=== PATIENT | male | born 1990 | race Caucasian/White ===

== ENCOUNTER 2018-05-23 23:14 | Inpatient (IN) | payer OTHER ==
--- NOTE | 2018-05-23 23:25 | EDPHY ---
H & P Source: Patient, Police Time Seen by Provider: 05/23/18 23:25 HPI/ROS: HPI CHIEF COMPLAINT: M1 hold by police, court order. HISTORY OF PRESENT ILLNESS: 27-year-old male, presents emergency room stating he does not take any medications and denies any significant medical history denies any psychiatric history. On further history taking and review of systems the patient is refusing to answer my questions. He states he is brought here by police on M1 hold as his mom called 911 out of concern. The police showed up to his house and brought him here. He states he has no idea why he is on M1 hold or brought here. Of note additionally this patient presents emergency room with a court order for evaluation. Past Medical History: Anxiety and bipolar disorder. Past Surgical History: Denies surgical history Social History: Denies drugs alcohol tobacco. Family History: Noncontributory ROS REVIEW OF SYSTEMS: Review of systems and history limited due to patient's interaction and unwillingness to cooperate and answer my questions. Exam Constitutional triage nursing summary reviewed, vital signs reviewed, awake/ alert. Eyes normal conjunctivae and sclera, EOMI, PERRLA. HENT normal inspection, atraumatic, moist mucus membranes, no epistaxis, neck supple/ no meningismus, no raccoon eyes. Respiratory clear to auscultation bilaterally, normal breath sounds, no respiratory distress, no wheezing. Cardiovascular rate normal, regular rhythm, no murmur, no edema, distal pulses normal. Gastrointestinal soft, non-tender, no rebound, no guarding, normal bowel sounds, no distension, no pulsatile mass. Genitourinary no CVA tenderness. Musculoskeletal no midline vertebral tenderness, full range of motion, no calf swelling, no tenderness of extremities, no meningismus, good pulses, neurovascularly intact. Skin pink, warm, & dry, no rash, skin atraumatic. Neurologic awake, alert and oriented x 3, AAOx3, moves all 4 extremities equally, motor intact, sensory intact, CN II-XII intact, normal cerebellar, normal vision, normal speech. Psychiatric normal mood/affect. Heme/Lymph/Immune no lymphadenopathy. Differential Diagnosis: Includes but is not limited to in a particular order underlying mood disorder, personality disorder, bipolar disorder, depression, suicidal ideation, drug intoxication, substance abuse Medical Decision Making: Plan for this patient blood draw for medical clearance , he is on M1 hold by police, he will need mental health evaluation. Re-evaluation: 0436: Patient sleepy no acute distress. He does have a history of bipolar disorder and anxiety. He is on a court order evaluation. Patient need mental health evaluation the morning. 0630AM: Patient sleeping. Signed over to Dr. Segura 7am shift-change. (Rufus Nance) Constitutional: Initial Vital Signs Temperature (C) 36.4 C 05/23/18 23:28 Heart Rate 56 L 05/23/18 23:28 Respiratory Rate 16 05/23/18 23:28 Blood Pressure 156/93 H 05/23/18 23:28 O2 Sat (%) 99 05/23/18 23:28 O2 Delivery Mode Room Air Allergies/Adverse Reactions: No Known Allergies Allergy (Unverified 05/23/18 23:22) Home Medications: Medication Instructions Recorded NK [No Known Home Meds] 05/23/18 Medical Decision Making Other Provider: Care assumed at 7:00 a.m. With plan for mental health admission. The patient will be transferred to [facility] for inpatient psychiatric hospital bed not available at this facility, in stable condition; accepting physician is Dr. Rod Alvarado, discussed with him at 8:30 a.m. EMTALA form completed. (Reynaldo Segura) - Data Points Laboratory Results: Laboratory Results 05/23/18 23:26 05/23/18 23:26 05/24/18 05/23/18 05/23/18 00:05 23:26 23:26 WBC 8.77 10^3/uL 10^3/uL (3.80-9.50) RBC 5.13 10^6/uL 10^6/uL (4.40-6.38) Hgb 15.6 g/dL g/dL (13.7-17.5) Hct 45.2 % % (40.0-51.0) MCV 88.1 fL fL (81.5-99.8) MCH 30.4 pg pg (27.9-34.1) MCHC 34.5 g/dL g/dL (32.4-36.7) RDW 12.2 % % (11.5-15.2) Plt Count 219 10^3/uL 10^3/uL (150-400) MPV 10.6 fL fL (8.7-11.7) Neut % (Auto) 48.7 % % (39.3-74.2) Lymph % (Auto) 37.4 % % (15.0-45.0) [place] % (Auto) 8.1 % % (4.5-13.0) Eos % (Auto) 4.7 % % (0.6-7.6) Baso % (Auto) 0.9 % % (0.3-1.7) Nucleat RBC Rel Count 0.0 % % (0.0-0.2) Absolute Neuts (auto) 4.27 10^3/uL 10^3/uL (1.70-6.50) Absolute Lymphs (auto) 3.28 10^3/uL H 10^3/uL (1.00-3.00) Absolute Monos (auto) 0.71 10^3/uL 10^3/uL (0.30-0.80) Absolute Eos (auto) 0.41 10^3/uL H 10^3/uL (0.03-0.40) Absolute Basos (auto) 0.08 10^3/uL 10^3/uL (0.02-0.10) Absolute Nucleated RBC 0.00 10^3/uL 10^3/uL (0-0.01) Immature Gran % 0.2 % % (0.0-1.1) Immature Gran # 0.02 10^3/uL 10^3/uL (0.00-0.10) Sodium 140 mEq/L mEq/L (135-145) Potassium 3.8 mEq/L mEq/L (3.3-5.0) Chloride 98 mEq/L mEq/L (97-110) Carbon Dioxide 30 mEq/l mEq/l (22-31) Anion Gap 12 mEq/L mEq/L (8-16) BUN 23 mg/dL mg/dL (7-23) Creatinine 1.2 mg/dL mg/dL (0.7-1.3) Estimated GFR > 60 Glucose 99 mg/dL mg/dL (70-100) Calcium 9.6 mg/dL mg/dL (8.5-10.4) Urine Opiates Screen NEGATIVE (NEGATIVE) Urine Barbiturates NEGATIVE (NEGATIVE) Ur Phencyclidine Scrn NEGATIVE (NEGATIVE) Ur Amphetamine Screen NEGATIVE (NEGATIVE) U Benzodiazepines Scrn NEGATIVE (NEGATIVE) Urine Cocaine Screen NEGATIVE (NEGATIVE) U Marijuana (THC) Screen NEGATIVE (NEGATIVE) Ethyl Alcohol < 10 mg/dL mg/dL (0-10) Departure - Departure Disposition: [facility] IP Clinical Impression: Bipolar disorder Qualifiers: Active/Remission status: currently active Current bipolar episode type: mixed Current episode severity: severe Psychotic features: with psychotic features Qualified Code(s): F31.64 - Bipolar disorder, current episode mixed, severe, with psychotic features Condition: Good Instructions: Bipolar Disorder (ED) Referrals: Maru Alvarez MD [Medical Doctor] - As per Instructions NONE *PRIMARY CARE P,. [Primary Care Provider] - As per Instructions (Dr. Nj )
[2018-05-23 23:33] LABS: PLATELET COUNT 219 10^3/uL (150-400)
[2018-05-24] MEDS ORDERED: MAGNESIUM HYDROXIDE 30 ML UDCUP PO PRN (10:37)
[2018-05-24] MEDS ORDERED: MAG HYDROX/AL HYDROX/SIMETH 30 ML UDCUP PO PRN (10:37)
[2018-05-24] MEDS ORDERED: ACETAMINOPHEN 325 MG TAB PO PRN (10:37)
--- NOTE | 2018-05-24 10:43 | ASMTTLCEVL ---
TLC Evaluation - Basic Information Evaluation Start Date and 05/24/2018 07:05 AM Time Hospital Status Answers: M1 Hold 72-hr M1 Hold Start Date 05/23/2018 11:14 PM and Time Patient statement Notes: I don't agree with what my mother reported on the court-ordered hold. I think it's just a game to force people to be hospitalize. I'm not relating to my mother. We don't see eye-to-eye. Regarding the hold report that I had barricaded myself in my house, it was just that I was trying to keep my mother from coming in. I have been feeling depressed for about a year. I'm unhappy and have severe discomfort in my body." Narrative Notes: Pt is a 27 yo, single, unemployed, male, with reported past history of anxiety, bipolar illness, possible autism spectrum/asperger's, brought to [facility]ordered hold petitioned by [facility] due to concerns about suicidal statements. Per petitioner's statement: pt has a history of mental health diagnosis for anxiety disorder and bipolar. He has had issue in the past but recently [[facility]'s} concern for his safety and wellbeing has intensified. Family also has a history of mental illness, autism and suicide and [facility] fears that pt has become suicidal. 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 He lives in [place] in a house for which [facility] pays the utilities and rent. Pt has completely isolated himself and recently had express despair about being alive. Pt sent a text to [facility] "You don't know the hell that I am in, you don't know how bad the state of my mind and body has gotten and how it reacts with people. It may be redeemable, in which case the best thing to do is to end my life. If you knew the torment I experience, unremittinlgy, and then you would know it doesn't just calm down when you're here, it often gets worse. If the knot is just too tight to untangle, then the best thing to do is cut the string. I have no relief. I don't experience any amount of ok. My body and mind are hell." [facility] added that pt had sent her a Youtube video where the speaker was talking about suicide and how people who commit suicide are not bad, but rather teachers. Pt has no social connections in [place]. His family and MOC live out of state but try to keep in contact with him. MOC will text him with no response. His twin brother will also try and reach out to him without any response. This past week, BOC and MOC flew out to [place] to check on pt. When they arrived to pt's home, it was barricaded. Once his brother got past the barricades and into the house, pt went out a window onto his roof and hid from family. They tried to talk to pt but received no answers. Pt would not come back into the house until they left. Pt also hides in crawl spaces or in the basement when his anxiety becomes too much for him. Although pt has sought out help in the past, he will never follow through. He refuses to take any medication or seek any professional help at this time. Pt has told MOC that if she tried to put him the health care system that he will run or . His anxiety level goes up to the point that he begins to hit himself in the heart or the back of his head. It looks as if he can no longer control the action of his body - he will jerk, groan, and yell. [facility] reported she fears for pt's life and that he had asked her recently "what if I do not want to live?" Pt is in a state of complete despair. he has attempted suicide in the past and [facility] is concerned that if he does not get help he needs, he will attempt it again. As earlier noted, pt minimized his symptoms but did endorse feeling depressed for the past year. Pt reported having been hospitalized three previous times for 72 hours then released. He was treated at [facility] at age 18 and most recently in June 2017. Pt reported having attended a [facility] drug rehab in [facility] where he spent two months for opiate dependency. Pt reported that he had worked with a therapist named Zaheer Bailey over the past 10 years, however, has not been working with him in two years. [facility] reported that pt had attempted to become involved with the [facility], but would fail to attend/participate. Pt reported he is not on any home medications, has no known medication allergies. Sleep - pt reported typically getting 6-7 hours per night. Appetite was reported as normal. Diagnosis History Notes: Pt has reported history of anxiety, bipolar illness, and austims spectrum/possibe asperger's. Prior suicide attempts Notes: MOC reported on petitioner's statement that pt had attempted suicide in the past. Prior hospitalizations Notes: Pt reported having been hospitalized three previous times for 72 hours then released. He was treated at [facility] at age 18 and most recently in June 2017. Pt reported having attended a [facility] drug rehab in [place] called [facility] where he spent two months for opiate dependency. Treatment Responses Notes: MOC reported pt having a history of not following up with professional care or taking prescribed medications. History of violence Notes: None reported. Therapist: None currently Psychiatrist: None Medications (name, dosage, route, freq uency) Notes: No home medications. Allergies/Reaction Notes: None reported. Sleep Notes: Pt reported typically getting 6-7 hours of sleep per night. Appetite Notes: WNL Medical/Surgical history Notes: None reported. Substance use history (frequency, intensity, his tory, duration) Notes: Pt reported having first tried alcohol at age 17. He reported he consumed more heavily around age 18. He reported that over the last year, he would drink about a dozen time total. He reported his last alcohol use, however, was last night, drank two shots of gin in a gin & [place] apple juice. He reported having first tried non-prescribed oxycontin at age 15. He reported going to two month [facility] rehab in [place] called [facility] at age 17. He reported his last use of any opiates was after attending the [facility] program at age 17. Pt reported he first tried marijuana at age 13. He reported he has not used any marijuana in the past 3-4 years. Pt denied any other illicit substance use history. BAL was zero. UDS was negative for all tested susbstances. Family composition Notes: Parent after 15 year marriage in 2003. Pt has a fraternal twin brother who lives in [place], [place]. He has a 27 yo sister who resides in [place]. Need for family Answers: Yes participation in patient's care Family psychiatric/substance abuse history Notes: MOC reported extensive family history, with MGFOC having history of bipolar and alcoholism; MGMOC with history of Autism; MAunt that committed suicide by overdose of pills and alcohol; MUncle with history of Asperger's; FOC with undiagnosed but suspected Asperger's. Developmental history Notes: Pt grew up in [place], [place]. He attended private schools. He denied any childhood history of TBI's, LOC, or concussions. Pt denied any childhood history of physcial, emotional or sexual abuse/trauma. Abuse concerns Answers: None Marital status/children Notes: Pt is single, never , no dependents. Not involved in dating relationship. Living situation Notes: Pt resides in a house in [place] by himself. [facility] pays utilities and rent for pt. Sexual history/orientation Notes: Not active. Heterosexual. Peer support/family strengths Notes: None identified by pt. MOC and siblings appear concerned and want to be supportive, however, pt alienates himself from family/others. Education level/history Notes: Pt attended private schools growing up. He later obtained his GED. Work history Notes: [facility] reported pt having worked briefly in the past doing [employer] type work in which he could be by himself. 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 He has not been employed for a few years now. Notes: None. Legal Notes: Pt reported obtaining a DUI in 2008 and had to attend alcohol ed classes, community service. Sikh/Spiritual Notes: None reported by pt which would impact treatment. Leisure Notes: Pt reported he enjoyes being outdoors and hiking. Collateral Notes: Per [facility], Rhiannon Gleason [phone] as noted above. TLC Evaluation - Mental Status Exam Appearance: Answers: Appropriate Unkempt Eye Contact: Answers: Intermittent Staring Mood: Answers: Depressed Labile Sad Affect: Answers: Anxious Calm Constricted Guarded Inappropriate Incongruent w/ Mood Labile Sad Silly Suspicious Behavior: Answers: Cooperative Guarded Passive Resistive to Care Speech: Answers: Relevant Logical Clear Coherent Loose Associations Thought Process: Answers: Disorganized Oriented Alert Circumstantial Loose Associations Tangential Insight: Answers: Poor Judgement: Answers: Poor Manic Signs/Symptoms Answers: Impulsivity Mood Swings Depression Answers: Difficulty Concentrating Signs/Symptoms: Diminished Pleasure Flat Affect Psychomotor Retardation Sad Mood Withdrawn Anxiety Signs/Symptoms Answers: Generalized Anxiety Hallucinations: Answers: None Delusions: Answers: Paranoid Ideation Current Stage of Change Answers: Maintenance Pt reported to have Answers: Yes suicidal/self-injuring ideation/behavior? Pt reported to be making Answers: No suicidal/self-injuring threats? Pt reported to have Answers: No aggression/assault ideation/behavior? Pt reported to be making Answers: No aggression/assault threats? Pt exhibits inability to Answers: Yes care for self/grave disability? Ideation/behavior is Answers: Yes chronic? Patient has a specific Answers: No plan? Ideation involves Answers: No serious/lethal intent? Ideation has Answers: No delusional/hallucinatory content? History of Answers: Yes suicidal/self-injuring ideation, behavior, or threats? History of Answers: No aggressive/assaultive ideation, behavior, or threats? History of serious Answers: No physical harm to self/others while in treatment setting? TLC Evaluation - Suicide/Homicide Risk Suicide Risk Factors: Answers: Anhedonia Anxiety/Panic, Severe Bipolar Disorder Flat Affect Hx of Suicide Attempt by Family Member Impulsivity Inadequate Social Support Lack of Sikh Support Lack of Social Support Lack/Loss of Employment Prior Suicide Attempt(s) Single Homicide/violence risk Answers: None factors: Current Suicidal Answers: No Ideation? Current Suicidal Ideation Answers: Yes in the Past 48 Hours? Current Suicidal Ideation Answers: Yes in the Past Month? Current Suicidal Answers: No Ideation, Worst Ever? Suicide Internal Answers: Absence of Psychosis Protective Factors: Suicide External Answers: None Protective Factors: Ranking of patient's Answers: Severe suicidal risk: Ranking of patient's Answers: Low homicidal risk: TLC Evaluation - Wrap-up BDI Total Score: 9 BDI Question #2 Score: 0 BDI Question #9 Score: 0 BSS Total Score: 0 AXIS I Diagnosis (include DSM-V and ICD-10 codes), must also be entered in [employer], which is the source of truth. Notes: PROVISIONAL DIAGNOSTIC IMPRESSION: BIPOLAR I DISORDER, CURRENT OR MOST RECENT EPISODE DEPRESSED, SEVERE 296.53 (F31.4) GENERALIZED ANXIETY DISORDER 300.02 (F41.1) R/O AUTISM SPECTRUM DISORDER/ASPERGER'S 299.00(F84.0) IN CONSULTATION WITH [facility] ED PHYSICIAN, DIANA HARP MD AND ON-CALL PSYCHIATRIST, KERRY THORNE MD, BOTH CONCURRED THAT PT APPEARS TO MEET 27-65 CRITERIA REQUIRING PSYCHIATRIC HOSPITALIZATION PT APPEARS TO BE AN IMMINENT RISK OF HARM TO SELF DUE TO A MENTAL ILLNESS CONDITION. PT WAS GIVEN (BUT DECLINED TO SIGN) THE 3N PROHIBITED BELONGINGS LIST WHILE IN THE ED. Evaluation End Date and 05/24/2018 10:40 AM Time (HH:SOHAIL): Date Signed: 05/24/2018 10:42 AM Electronically Signed By:Cameron Masterson
--- NOTE | 2018-05-24 10:45 | ASMTTCLDSP ---
TLC Discharge Disposition Disposition: Answers: Admit Disposition Notes: Notes: ADMIT TO [facility]. Discharge Concerns/Recommendations: Notes: IN CONSULTATION WITH [facility] ED PHYSICIAN, DIANA HARP MD AND ON-CALL PSYCHIATRIST, KERRY THORNE MD, BOTH CONCURRED THAT PT APPEARS TO MEET 27-65 CRITERIA REQUIRING PSYCHIATRIC HOSPITALIZATION PT APPEARS TO BE AN IMMINENT RISK OF HARM TO SELF DUE TO A MENTAL ILLNESS CONDITION. PT WAS GIVEN (BUT DECLINED TO SIGN) THE 3N PROHIBITED BELONGINGS LIST WHILE IN THE ED. Was patient given the Answers: Yes Inpatient Behavioral Health Prohibited Belongings List while in the ED? For inpatient Kerry Thorne MD admission, the following psychiatrist agreed to accept patient for admission to Behavioral Health ([facility]): Psychiatrist vacating M1 N/A Hold: Type of Hold: Answers: M1/72-hour Hold Hold initiated by: Answers: Court Order For Transfers, Accepting [facility] Facility: Date Signed: 05/24/2018 10:45 AM Electronically Signed By:Cameron Masterson
--- NOTE | 2018-05-24 13:25 | BCON ---
[f rep st] BEHAVIORAL HEALTH CONSULTATION INTERNAL MEDICINE CONSULTATION DATE OF CONSULTATION: 05/24/2018 REFERRING PHYSICIAN: Rod Alvarado MD REASON FOR REFERRAL: Medical clearance for inpatient behavioral health stay. HISTORY OF PRESENT ILLNESS: This patient came to the emergency department brought by police on an M1 hold for a court-ordered psychiatric evaluation. He reports that it was his mother who arranged the court order. He is currently without any medical complaints. PAST MEDICAL HISTORY: He denies any history of medical illnesses. He has diagnoses in the chart of bipolar disorder and anxiety. PAST SURGICAL HISTORY: He has not had any surgeries. MEDICATIONS: He was not taking any medications. SOCIAL HISTORY: He lives by himself in an apartment. He has worked part-time jobs in the past including restaurant work and [employer], but is not working currently. He denies tobacco smoking, alcohol use, or use of other substances of abuse. FAMILY HISTORY: He is not aware of any medical problems that run in his family. REVIEW OF SYSTEMS: Other than feeling sad, a 10-point review of systems was conducted and was negative. PHYSICAL EXAM: VITAL SIGNS: Blood pressure is 126/76. Heart rate is 50. Respiratory rate is 12. Oxygen saturation is 99% on room air. Temperature is 37 degrees centigrade. His weight is 63.5 kg for a body mass index of 20.1. GENERAL: This is a thin, but otherwise well-nourished, well-developed man lying down in bed, sits up on the edge of the bed when the examiner enters. Cooperative and in no acute distress. HEENT: Extraocular movements are intact. Pupils are equal, round, and reactive to light. Mucous membranes are moist. Dentition is in good condition. He has an uncrowded airway, Mallampati class 1. NECK: Supple. HEART: There is a regular rate and rhythm. He is bradycardic. There are no murmurs, rubs, or gallops. LUNGS: Clear to auscultation bilaterally. ABDOMEN: Benign. EXTREMITIES: There is no cyanosis , clubbing, or edema. NEUROLOGIC: He is alert and oriented x3. He has a flat affect. Cranial nerves 2-12 are grossly intact. There is no focal weakness, and sensation is intact to light touch. LABORATORY STUDIES: Drawn in the emergency department, CBC was overall within normal limits. He had a very slight increase in absolute lymphocytes and eosinophils of no clinical significance. Serum chemistry revealed normal renal function, electrolytes, and liver functions. Toxicology screen in the serum was negative for ethyl alcohol and in the urine was negative for any substances of abuse. ASSESSMENT/RECOMMENDATIONS: 1. Mental health issues pending further evaluation and management per Psychiatry and the mental health team. 2. Normal examination overall. 3. Bradycardia is likely to be a normal variant. He shows no signs or symptoms of any structural heart disease. 4. I see no medical contraindications to this patient's continued stay on the inpatient behavioral health unit or to any psychiatric medications or procedures. Thank you very much for including me in the care of this patient and please do not hesitate to contact me or the hospitalist service should there be need for further medical evaluation. /[id number]/MODL MTDD
[2018-05-24] MEDS ORDERED: traZODone 50 MG TAB PO PRN (14:39)
--- NOTE | 2018-05-24 16:26 | BAPA ---
[f rep st] ADMISSION PSYCHIATRIC ASSESSMENT DATE OF SERVICE: 05/24/2018 CHIEF COMPLAINT: "Mom concerned about me because I haven't been functioning like normal." HISTORY OF PRESENT ILLNESS,: Pertinent data from the ED note dated 05/23/2018. The patient was brought to the ER by police on an M1 hold for a court order evaluation. The patient reported that he does not take any medications and denied any significant medical history and denied any psychiatric history. The patient was brought by police for a court order evaluation as his mom called 911 out of concern for him. The patient stated he had no idea why he was brought to the ER. Pertinent data from [facility] evaluation dated 05/24/2018 at 7:05 a.m. The patient reported he did not agree with what his mother reported for the court ordered hold. The patient reported he thinks it is just a game to force people to be hospitalized and he was not relating to his mother. The patient stated he does not see eye to eye with his mother. The patient stated that regarding what was reported on the hold, he did report barricading himself in his house. He was just trying to keep his mother from coming in. The patient reported he has been feeling depressed for about a year and stated he is unhappy and having severe discomfort in his body. The patient did endorse feeling depressed for the past year. He reported having been hospitalized 3 previous times for 72 hours, then released. He was treated at [facility] at age 18 and was most recently at [facility] and released June of 2017. The patient reported that he has attended a [facility] rehab in [place] called [place], where he spent 2 months for opiate dependence. The patient reported that he had worked with a therapist named Zaheer Smith over the past 10 years; however, has not been working with him most recently over the past 2 years. The patient reports he typically gets about 6-7 hours of sleep per night and reported his appetite as normal. The patient was admitted involuntarily for court order evaluation due to being thought a danger to himself and gravely disabled and the court was petitioned by his mother. The patient was hospitalized for safety crisis stabilization and medication evaluation. The patient describes circumstances that led to current hospitalization as he has not been working for over a year, has been depressed, and has been isolating in his home and this has caused his mother to be concerned. The patient reports one year ago, he was dating a girl and was socializing with friends and then the relationship ended. He moved to [place] and has been depressed and isolating since then. The patient does agree that the break-up with girlfriend about 1 year ago may have been a contributing factor to his current depression. The patient also reports that he realizes that not socializing is also likely leading to his depressed state and reports that it snowballs. He gets depressed, does not socialize, and this just leads to more depression. The patient reports current mental illness as none. The patient reports he has seen a psychiatrist in the past as a teenager for anxiety and reports last episode of depression as a teenager. The patient states current alcohol or substance abuse that contributed to current hospitalization as none. The patient describes current psychiatric symptoms as depressed mood, diminished interest and pleasure in activities, feelings of fatigue, feelings of worthlessness and guilt, and indecisiveness nearly every day. The patient denies symptoms of agoraphobia, naun, anxiety, ADHD, OCD, PTSD, psychosis, and any other symptom of a psychiatric disorder. The patient describes abuse history as none. The patient describes current psychiatric symptoms are impacting managing day-to-day life, described as his home is a mess , but he does report attending to ADLs. The patient reports he has been unemployed for 1 year, describes isolating and currently has no social connections in the [place] area. The patient reports he does get along with his family, but when he is feeling depressed he avoids contact with his mother. The patient reports he enjoys hiking and he gets out for hikes on a daily basis. The patient describes that he is generally satisfied with his life. The patient denies current suicidal ideation, denies current homicidal ideation , and denies current self-injurious ideation. The patient reports protective factors or reasons to live as just that he enjoys life and he finds life to be very beautiful. The patient reports future goals as doing something helpful and having a relationship. The patient reports he currently does not have any emotional support network. The patient reports current outpatient treatment as none. States he currently does not see a provider for medication management nor does he see a therapist. The patient reports he is interested in re- engaging in therapy. PAST PSYCHIATRIC HISTORY: The patient describes the following psychiatric history: The patient reports he was diagnosed with anxiety as a teenager and he has been tried on multiple psychotropic medications including Zoloft, Prozac , Lamictal, Wellbutrin, Depakote and Seroquel. The patient reports that regardless of the type of medication he always feels numb when he takes medication and "in a fog." The patient reports he did see a psychiatrist as a teenager on an outpatient basis. The patient describes history of being hospitalized 3 times for 72 hours, then released. The patient reports he was treated at [facility] at age 18 and reports he was last at [place] in June of 2017 due to a court order placement by his mother, similar to the court order placement for current hospitalization. The patient denies history of major withdrawal from drugs or alcohol. The patient reports history of suicide attempt as a teenager by overdose on Ativan. The patient denies history of self-injurious behavior. ALLERGIES: No known drug allergies. CURRENT MEDICATIONS: None. PAST MEDICAL HISTORY: The patient describes the following: The patient denies any neurological history including history of organic brain disease, traumatic brain injury or concussions. The patient denies history of major illnesses or major hospitalizations. SOCIAL HISTORY: The patient describes the following social history: The patient reports he was born in [place] and his parents were at the time of his . The patient reports his parents when he was 12 years old and he was raised the majority of his life in [place] by his mother. The patient reports he currently lives in [place] alone. The patient describes meeting all his developmental milestones and reports no history of learning delays or difficulties. The patient describes his sexual orientation as heterosexual, states he is currently not in a relationship, has never been , and has no children. The patient reports he has been unemployed for 1 year. Reports his highest level of education is high school. Describes no history of duty. No baptism or spiritual practice and states he currently has no legal charges. SUBSTANCE USE HISTORY: The patient reported having first tried alcohol at age 17. He reported he consumed more heavily around age 18. Reports that over the last year he would drink about a dozen times total. The patient reports last alcohol use was 2 nights ago. He states he drank 2 shots of gin in a gin and Brant apple juice. The patient reports having first tried non-prescribed OxyContin at age 15. He reports going to a [facility] in [facility] at age 17. The patient reports he last used opiates after attending the wilderness program at age 17. The patient describes he first tried marijuana at age 13 and the reports he has not used marijuana in the past 3-4 years. The patient denies any other illicit substance use history. A blood alcohol was 0 and UDS was negative for all tested substances upon admission. FAMILY PSYCHIATRIC HISTORY: The patient describes the following family psychiatric history: The patient reports a family history of depression, does not provide any details regarding specific family relatives with a diagnosis of depression. The patient reports a family history of suicide, states that his aunt completed suicide. The patient reports family substance use history as paternal grandfather abused alcohol. ADMISSION LABS AND STUDIES: Labs drawn in the emergency department: CBC was overall within normal limits. The patient had a very slight increase in absolute lymphocytes and eosinophils of no clinical significance. Serum chemistry revealed normal renal function, electrolytes, and liver functions. Toxicology screen in the serum was negative for ethyl alcohol and in the urine was negative for any substances of abuse. MENTAL STATUS EXAM: The patient is an undernourished male looking chronological age. The patient's attire is appropriate. Dress is hospital garb and is neat and clean. Grooming status is appropriate and clean. The patient's ambulation is independent. Gait is normal and coordinated. The patient's posture is normal and relaxed. During the interview, the patient's eye contact is appropriate and adequate. Motor activity is appropriate with purposeful, organized, and coordinated movements with no involuntary movements noted. The patient's attitude is cooperative and friendly. The patient appears attentive and relates well to this interviewer. Language production is spontaneous. Rate , rhythm and volume are appropriate. Articulation is clear. The patient reports mood as depressed with blunted and congruent affect. The patient's thought process is linear and logical with no loose associations, no tangential thoughts, no thought blocking, no concrete thinking, or any other signs of formal thought disorder. The patient does not report suicidal, homicidal thoughts, ideas, or plans. The patient denies auditory or visual hallucinations. The patient denies delusions. The patient does not appear to be attending to internal stimuli. The patient is oriented to person, place, time, and situation. The patient's attention and concentration are adequate. The patient's insight and judgment are fair. There is no evidence of gross cognitive dysfunction at any point during the interview and no evidence of apparent dysfunction in recent or remote memory. The patient reports he gets about 6-7 hours of sleep per night and describes his appetite as normal and eating 3 meals a day. DIAGNOSIS: Major depressive disorder, severe. FORMULATION: The patient is a 27-year-old male, single, unemployed, living in [place] alone, who presents to the hospital involuntarily on a court ordered evaluation due to being a harm to himself. The patient requires continued inpatient care for further monitoring due to recent concern that led to his being placed on a court ordered evaluation. The patient presents with problems of depression that have been steadily increasing over the past year. The patient's life has been affected by these problems, including being unemployed for a year, not engaging in any social activities, and leading to a major concern by his mother, who petitioned the court for a court ordered psychiatric evaluation. The onset of current symptoms was preceded by a break-up with girlfriend. The patient reports a past psychiatric history of anxiety and states that he currently has been treated with psychotropic medications in the past. The patient reports he currently is not interested in psychotropic medications for depression. However, the patient does agree to a trial of trazodone 50 mg p.o. at bedtime p.r.n. for insomnia. Based on the patient's history and current presentation, his diagnosis is major depressive disorder, severe. The patient is a moderate safety risk due to current crisis and history of depression. Protective factors while hospitalized include ongoing safety checks, active involvement in treatment, and support from our treatment team. The patient could benefit from inpatient hospitalization for safety crisis stabilization and medication evaluation. PLAN: 1. Psychotropic medications: After reviewing treatment options, the risks and benefits, the patient agrees to trial of trazodone 50 mg p.o. at bedtime p.r.n. for insomnia and depression. 2. Labs: A1c, fasting lipid panel, liver function tests. 3. Therapy: Milieu and group therapy while the patient is hospitalized. The patient also expressed motivation during the interview to be re-engaged in therapy and this interviewer spoke to telehealth case manager regarding providing the patient with outpatient referrals and appointments for the patient to be re- established with therapy. This interviewer also discussed with the patient and the telehealth case manager regarding some referrals for the patient to be engaged socially in the community. 4. Further investigation including gathering information from patients relatives and review of past case records 5. Continued evaluation and monitoring will be ongoing during the course of patients inpatient hospitalization to inform treatment, to determine if adjustments in medication regimen may benefit patients symptoms, and for discharge planning 6. Safety plan and follow-up outpatient appointments to be established prior to discharge 7. Confer with inpatient treatment team regarding initial treatment plan 8. Review informed consent and recommendations for psychotropic medication treatment listed below now, during the course of hospitalization, and during discharge interview Estimated length of stay: 2 - 3 days. PSYCHOTROPIC MEDICATION TREATMENT INFORMED CONSENT and RECOMMENDATIONS: Review nature of condition, diagnosis, and prognosis. Review nature and purpose of psychotropic medication treatment. Review type of psychotropic medications being ordered. Review risk and benefits of psychotropic medication treatment. Review probable length of time will need to take medications. Review risk and benefits of not undergoing psychotropic medication treatment. Review alternative treatments to psychotropic medications. Review psychotropic medications contraindications, drug-drug interactions, side effects, and importance of reporting any side effects to a psychiatric provider or nurse during inpatient hospitalization, and upon discharge to patients psychiatric outpatient provider, primary care provider, or other health ocular care aide. Review importance of asking a nurse, psychiatric provider, or primary care provider any questions or problems concerning the psychotropic medications. Verifty patient understands the information that has been provided, and understands, accepts, and agrees to psychotropic medications. Review patients safety plan and importance of patient to communicate to staff while hospitalized if patient is ever a danger to self/others, or unable to care for self, and upon discharge, the importance for patient to contact [facility] or [facility], or go to the nearest emergency room, if patient is ever a danger to self/others, or unable to care for self. Recommend that upon discharge patient establish medication management treatment with a psychiatric provider, establishes routine therapy appointments, and follow-up with primary care provider. Verify patient understands and agrees to these recommendations. /[id number]/MODL MTDD
--- NOTE | 2018-05-25 08:49 | PDMN ---
Medical Necessity Medical necessity: [id number] Major Depressive disorders IN care 3 days - Involuntary admit, court ordered due to being harm to self.
--- NOTE | 2018-05-25 11:02 | ASMTBHMTP ---
Master Treatment Plan Master Treatment Plan Answers: Depressed Mood without for: Suicidal Ideation Date: 05/25/2018 Diagnosis on Admission: BiPolar I Disorder, Current or Most Recent Episode Depressed, Severe & Generalized Anxiety Disorder Expected length of stay: 3-5 days Reason for admission: Notes: Pt is a 27 yoa male with reported history of anxiety, bipolar illness, possible autism spectrum/asperger's, brought to ED by [facility] on a court-order Hold Petition by [facility] due to concerns about suicidal statements Client has had at least three prior hospitalizations. Pt reported having attended a [facility] in [facility] where he spent two months for Opiate Dependency. Pt reported that he was worked with a therapist named Zaheer Bailey over the past 10 years; however, has not been working with him in two years. Patient's stated presenting problems: Notes: "Because, I have a court order to be here, due to my Mother's concern for my mental health." Patient's goals for treatment: Notes: "[I] am looking to be 'here' present and live my life and hopefully discharging soon." Patient's strengths: Notes: "I am a kind person." Identify supports outside of hospital: Notes: Therapist: Zaheer Bailey Discharge criteria: Notes: Suicidal Ideation will resolve and patient will have a plan to safely manage recurrent suicidal ideations." Initial disposition plan/considerations: Notes: "go home and then go camping." Master Treatment Plan Required Signatures Psychiatrist signature: Answers: YARON Reagan: RN on-shift signature: Answers: RN: Patient signature: Answers: Patient: Date Signed: 05/25/2018 11:01 AM Electronically Signed By:Fito Martinez
--- NOTE | 2018-05-25 12:03 | ASMTBHDC ---
Notes Note: Notes: Per provider, client will be discharging when hold is up on 05/26 at 14:55. CC sent referral packet to [facility]; waiting to hear back. Also, included additional resources listed below. CC completed MTP and ALBINO with client. Client is semi-clean, direct, good eye contact, depressed with current situation, eager to find out-patient providers, affect is sadden; however, appropriate to situation. Date Signed: 05/25/2018 12:02 PM Electronically Signed By:Fito Martinez
--- NOTE | 2018-05-25 15:44 | SOAPPROG ---
SOAP Progress Note Assessment/Plan: Assessment: Major depressive disorder, severe. Improvement noted. (see subjective/ objective note). Patient is not safe to discharge at this time as more time is needed to monitor and evaluate for safety and for establishing a safe discharge plan. Patient could benefit from continued inpatient hospitalization for crisis stabilization, safety, and medication evaluation. Plan: Review psychotropic medication treatment informed consent and recommendations. After reviewing options, risk and benefits, patient agrees to continue medications. No medication changes at this time as more time is needed to determine ongoing tolerability and efficacy. Plan is to continue to observe patient for response and side effects from medications, and ongoing monitoring and evaluation. Next steps are for patient to meet with client care consultant to plan a safe discharge plan and establish outpatient services for ongoing treatment. Consider discharge on if patient is in stable condition, safe, and has a safe discharge plan. PSYCHOTROPIC MEDICATION TREATMENT INFORMED CONSENT and RECOMMENDATIONS: Review nature of condition, diagnosis, and prognosis. Review nature and purpose of psychotropic medication treatment. Review type of psychotropic medications being ordered. Review risk and benefits of psychotropic medication treatment. Review probable length of time patient will need to take medications. Review risk and benefits of not undergoing psychotropic medication treatment. Review alternative treatments to psychotropic medications. Review psychotropic medications contraindications, drug-drug interactions, side effects, and importance of reporting any side effects to a psychiatric provider or nurse during inpatient hospitalization, and upon discharge to patients psychiatric outpatient provider, primary care provider, or other health family day care provider. Review importance of asking a nurse, psychiatric provider, or primary care provider any questions or problems concerning the psychotropic medications. Verify patient understands the information that has been provided, and understands, accepts, and agrees to psychotropic medications. Review patients safety plan and importance of patient to report to staff while hospitalized if patient is ever a danger to self/others, or unable to care for self, and upon discharge, the importance for patient to contact [facility] or 1, or go to the nearest emergency room, if patient is ever a danger to self/others, or unable to care for self. Recommend that upon discharge patient establish medication management treatment with a psychiatric provider, establishes routine therapy appointments, and follow-up with primary care provider. Verify patient understands and agrees to these recommendations. 05/25/18 15:43 Subjective: Following up with patient for evaluation of depression and safety. Patient reports, Doing okay. Patient expresses the following psychiatric symptoms: none. Patient reports plans to be more active after discharging, and realizes he needs to get out and connect with people. Patient describes motivation to get reconnected at with his therapist at [facility]. Patient states he plans to re-establish treatment with this therapist, Mr. Bailey. Patient gives this interviewer permission to contact Henrry Bailey to set-up meeting with Mr. Bailey, this interviewer, and patient to discuss outpatient services. Objective: Vital Signs Temp Pulse Resp BP Pulse Ox 37.0 C 50 L 12 126/76 H 99 05/24/18 10:53 05/24/18 10:53 05/24/18 10:53 05/24/18 10:53 05/24/18 10:53 NURSING REPORT: Consulted with nursing for update on patients progress in treatment. Nurses report patient is engaged in treatment, is attending groups, slept 8.5 hours, patient expresses the following psychiatric symptoms: none, exhibits the following psychiatric symptoms: moderate depression, is eating all meals, and attending to his ADLs with no difficulty. Patient denies SI/HI, A/V hallucinations, and denies delusions. Nurses report patient has been safe and is appropriate with staff and other patients. CHIP SEPARATOR UPDATE: CC reports currently reaching out to [facility] and [facility] to set up outpatient appointments and make referrals for patient when he discharges. HENRRY BAILEY PHONE CALL: Mr. Bailey agrees to meet with this interviewer and patient tomorrow on unit at 1415. The patient is a under-nourished male looking stated than chronological age. Attire is appropriate and dress is hospital garb, and is neat and clean. Grooming status is appropriate and neat and clean. Ambulation is independent. Gait is normal and coordinated. Posture is normal and relaxed. Eye contact is appropriate. Motor activity is appropriate with purposeful, organized, and coordinated movements with no involuntary movements noted. Attitude is cooperative and friendly. Patient appears attentive and relates well to this interviewer. Language production is spontaneous. R/R/V normal. Patient reports mood as okay with flat affect. Patients thought process is linear and logical, with no loose associations, tangential thought, thought blocking, concrete thinking, or any other signs of formal thought disorder. Patient does not report suicidal/homicidal thoughts, ideas, or plans. Patient denies auditory, visual hallucinations. Patient denies delusions. Patient does not appear to be attending to internal stimuli. Patients attention and concentration are adequate. Patient is oriented to person, place, time, and situation. Patients insight is adequate. Patients judgment is adequate. No evidence of gross cognitive dysfunction at any point during the interview. No evidence of apparent dysfunction in recent or remote memory. Patient slept 9 hours. Patient reports appetite as good, and reports eating all meals. - Time Spent With Patient Time Spent With Patient: 30 minutes, met with patient individually and contacted patient's therapist per patient's request. - Pending Discharge Pending Discharge Within 24 Hours: No Pending Discharge Within 48 Hours: No ICD10 Worksheet Patient Problems: Problems Problem Status Onset Major depressive disorder, severe Acute
[2018-05-26 06:24] VITALS: BP 119/66
--- NOTE | 2018-05-26 09:03 | SOAPPROG ---
SOAP Progress Note Assessment/Plan: Assessment: Major depressive disorder, severe. Continues to improve, notably improved insight and motivation for treatment (see subjective/objective note). Plan: Review psychotropic medication treatment informed consent and recommendations. After reviewing options, risk and benefits, patient agrees to continue medications. No medication changes at this time as more time is needed to determine ongoing tolerability and efficacy. Plan is to continue to observe patient for safety. Next steps are for patient to meet with nursing care attendant to plan a safe discharge plan and establish outpatient services for ongoing treatment; patient to also meet with this interviewer and Henrry Bailey from [facility] to discuss outpatient services. Consider discharge today if patient is in stable condition, safe, and has a safe discharge plan. PSYCHOTROPIC MEDICATION TREATMENT INFORMED CONSENT and RECOMMENDATIONS: Review nature of condition, diagnosis, and prognosis. Review nature and purpose of psychotropic medication treatment. Review type of psychotropic medications being ordered. Review risk and benefits of psychotropic medication treatment. Review probable length of time patient will need to take medications. Review risk and benefits of not undergoing psychotropic medication treatment. Review alternative treatments to psychotropic medications. Review psychotropic medications contraindications, drug-drug interactions, side effects, and importance of reporting any side effects to a psychiatric provider or nurse during inpatient hospitalization, and upon discharge to patients psychiatric outpatient provider, primary care provider, or other health animal care provider. Review importance of asking a nurse, psychiatric provider, or primary care provider any questions or problems concerning the psychotropic medications. Verify patient understands the information that has been provided, and understands, accepts, and agrees to psychotropic medications. Review patients safety plan and importance of patient to report to staff while hospitalized if patient is ever a danger to self/others, or unable to care for self, and upon discharge, the importance for patient to contact [facility] or [facility], or go to the nearest emergency room, if patient is ever a danger to self/others, or unable to care for self. Recommend that upon discharge patient establish medication management treatment with a psychiatric provider, establishes routine therapy appointments, and follow-up with primary care provider. Verify patient understands and agrees to these recommendations. 05/26/18 09:02 Subjective: Following up with patient for evaluation of depression and safety. Patient reports, "Doing okay." Patient expresses the following psychiatric symptoms: none. Patient reports he looks forward to meeting with Henrry Bailey today at 2: 15pm, and is open to exploring options that [facility] has to offer, and is also in agreement to a referral to [facility]. Patient describes motivation to connect with people and get out of his house more. Patient states he was able to get in some meditation this morning, and meditating is beneficial in "clearing" his mind and he states, "I feel more relaxed after meditating." Patient states he is motivated to locate meditation groups in the [place] area as one way to connect socially with others. Objective: Vital Signs Temp Pulse Resp BP Pulse Ox 36.4 C 49 L 16 119/66 100 05/26/18 06:00 05/26/18 06:00 05/26/18 06:00 05/26/18 06:00 05/26/18 06:00 NURSING REPORT: Consulted with nursing for update on patients progress in treatment. Nurses report patient is engaged in treatment, is attending groups, slept 8.5 hours, patient expresses the following psychiatric symptoms: none; exhibits the following psychiatric symptoms: moderate depression; is eating all meals, and attending to his ADLs with no difficulty. Patient denies SI/HI, A/V hallucinations, and denies delusions. Nurses report patient has been safe and is appropriate with staff and other patients. THERMOSTAT MECHANIC UPDATE: CC reports currently reaching out to [facility], [facility], [facility] outpatient services, and [facility] to set up outpatient appointments and make referrals for patient when he discharges. HENRRY BAILEY from [facility] to meet with this interviewer and patient today at 1415. The patient is well-nourished male looking stated than chronological age. Attire is appropriate and dress is hospital garb, and is neat and clean. Grooming status is appropriate and neat and clean. Ambulation is independent. Gait is normal and coordinated. Posture is normal and relaxed. Eye contact is appropriate. Motor activity is appropriate with purposeful, organized, and coordinated movements with no involuntary movements noted. Attitude is cooperative and friendly. Patient appears attentive and relates well to this interviewer. Language production is spontaneous. R/R/V normal. Patient reports mood as okay with brighter affect. Patients thought process is linear and logical, with no loose associations, tangential thought, thought blocking, concrete thinking, or any other signs of formal thought disorder. Patient does not report suicidal/homicidal thoughts, ideas, or plans. Patient denies auditory, visual hallucinations. Patient denies delusions. Patient does not appear to be attending to internal stimuli. Patients attention and concentration are adequate. Patient is oriented to person, place, time, and situation. Patients insight is adequate. Patients judgment is adequate. No evidence of gross cognitive dysfunction at any point during the interview. No evidence of apparent dysfunction in recent or remote memory. Patient slept 8.5 hours. Patient reports appetite as good, and reports eating all meals. - Time Spent With Patient Time Spent With Patient: 30 minutes, met with patient individually. - Pending Discharge Pending Discharge Within 24 Hours: Yes Pending Discharge Within 48 Hours: No Pending Discharge Date: 05/27/18 Pending Discharge Time: 11:00 ICD10 Worksheet Patient Problems: Problems Problem Status Onset Major depressive disorder, severe Acute
--- NOTE | 2018-05-26 12:50 | ASMTBHDC ---
Notes Note: Notes: CC was able to confirm client's follow up appointments prior to discharge today. Please view below: Follow up with: [facility] [address], [address]nd [place] [address] [phone] Intake Appt: WednesdayJune 06 (06/06/18) at 9AM, with Noah Desai Additional Resources: [employer] [address] [place] [address] [facility] [address] [place] [id number] Walk-in HOURS OF OPERATION [facility] OpensClosed for [facility] Wednesday [id number] Date Signed: 05/26/2018 12:49 PM Electronically Signed By:Fito Martinez
--- NOTE | 2018-05-26 20:27 | BDS ---
[f rep st] BEHAVIORAL HEALTH DISCHARGE SUMMARY REASON FOR ADMISSION: Pertinent data from ED note dated 05/23/2018: The patient was brought to the ED on an M1 hold and was brought to the emergency department with a court order for psychiatric evaluation. The patient reported he did not take medications. Denied any significant medical history and denied any psychiatric history. Pertinent data from psychiatric assessment and history dated 05/24/2018: The patient describes circumstances that led to his current hospitalization as he has not been working for over a year, has been depressed, and has been isolating in his home, and this has caused his mother to be concerned. The patient reported a year ago, he was dating a girl and was socializing with friends, and then, the relationship with the girl ended. The patient stated he moved back to [place] and has been depressed and isolating since then. The patient reported that break-up with girlfriend about 1 year ago was likely a contributing factor to his current depression. The patient reported that he realizes that not socializing is also likely leading to his depressed state and reports that it snow balls. During initial psychiatric assessment, the patient reported that he is generally satisfied with his life. The patient denied suicidal ideation, denied self-injurious ideation, and denied homicidal ideation. The patient reported protective factors or reasons to live as just that he enjoys life, and he finds life to be very beautiful. The patient did report future goals as doing something helpful and being in a relationship. The patient stated during initial evaluation that he was interested in re- engaging in therapy. The patient was admitted for court-ordered evaluation for a 72-hour evaluation due to being a danger to himself. The patient was admitted for safety, crisis, stabilization and observation. ADMITTING DIAGNOSIS: Major depressive disorder, severe. ADMISSION PHYSICAL EXAM: The patient was seen by Dr. Morales on 05/24/2018, for an internal medicine consultation for medical clearance for inpatient Behavioral Health stay. Dr. Morales reported he saw no medical contraindications to the patient's continued stay on the inpatient behavioral health unit or to any psychiatric medications or procedures. For further details regarding the admission physical exam, please refer to Dr. Morales's note dated 05/24/2018. ADMISSION LABS: From the emergency department, CBC was within normal limits. The patient had a very slight increase in absolute lymphocytes and eosinophils with no clinical significance. Serum chemistry revealed normal renal function, electrolytes, and liver functions. Toxicology screen in the serum was negative for ethyl alcohol, and the urine was negative for any substances of abuse. HOSPITAL COURSE: The most prominent symptom and behavior while the patient was hospitalized here was depression. Target symptoms during hospitalization: Depression. Treatment modalities utilized were as follows: Milieu and group therapy. The patient has improved considerably since his admission with improvement in depression symptoms, and at time of discharge, patient did not express any psychiatric symptoms. The patient reports he has improved since admission. States to be in stable condition, feels safe to discharge, and contracts for safety. Patient's response to treatment was good. There were no adverse or unexpected results of treatment. The patient was safe throughout his stay, active in treatment, attended and engaged in groups, and was appropriate with staff. The treatment team consensus is the patient is in stable condition and is safe to discharge today. During the course of the patient's hospitalization, he requested that this interviewer contact an outpatient provider, Zaheer Bailey, at [facility], as the patient reported he had seen Zaheer in the past for therapy and responded well to that. The patient's goal for this contact was to reconnect with Zaheer. Zaheer did visit the unit as requested by the patient today at 2:15. Initially, he met with the patient, and then, this interviewer and the care specialist also met with the patient and Mr. Bailey to discuss outpatient resources, including [facility], [facility]. The patient responded well to this meeting, and during the meeting, the patient was asked if he felt safe to discharge today, and the patient reported he did feel safe to discharge today and stated he was motivated for engaging in treatment after discharge. CONDITION AT DISCHARGE: Patient is in stable condition and is no longer a danger to self or others, and is not gravely disabled due to mental illness. Patient is no longer in need of inpatient level of care, and can be safely and effectively treated within the community. The patients level of risk at time of discharge is low based on the risk assessment below following this discharge summary. MSE: The patient is casually dressed and with good hygiene, and looks stated age. Patient is sitting, posture is upright, and position is relaxed. Patient appears awake, alert, and responds appropriately and reasonably during interview. Patient is engaged, relates well to interviewer, and emotional facial expression is appropriate to situation and changes appropriately with topic. Patient is cooperative, makes comfortable eye contact, and movements are voluntary, deliberate, coordinated, and smooth and even with no inappropriate movements. Patient makes laryngeal sounds effortlessly and shares conversation appropriately; pace of conversation is appropriate, and stream of talking is fluent; articulation is clear and understandable; word choice is effortless and appropriate for education level; completes sentences, occasionally pausing to think; rate and volume are appropriate for interview and setting. Patient reports mood as euthymic. Patients affect is stable with full variable range, congruent with mood, and appropriate to speech and circumstances. Patient has linear and logical thinking, with no loose associations, tangential thought, thought blocking, concrete thinking, or any other signs of formal thought disorder. Patient denies suicidal and homicidal ideation, and denies hallucinations and delusions. Patient appears to be a reliable historian with sound judgement and good insight into current condition. Patient has no apparent dysfunction in recent or remote memory noted , and no evidence of gross cognitive dysfunction noted at any point during the interview. DISCHARGE DIAGNOSES: Major depressive disorder, severe. DISCHARGE MEDICATIONS: None. The patient did report that he may be interested in medications at some point and plans to continue to consider this as an option for treating his depression symptoms. DISPOSITION: The patient left hospital today independently and voluntarily and plans to return home to his house in [place]. FOLLOWUP: flow coordinator reports the appropriate outpatient follow-up services have been established and outpatient appointments have been scheduled. The patient received written instructions with times and dates of outpatient follow-up appointments. The following follow-up recommendations were provided to the patient at discharge: Continue psychotropic medications as prescribed and attend appointments as scheduled. Report any side effects to a psychiatric outpatient provider, a primary care provider, or other health child care. Address any questions or problems concerning the psychotropic medications with a psychiatric outpatient provider, a primary care provider, or other health child care. Contact [facility] or [facility], or go to the nearest emergency room, if you are ever a danger to yourself/others, or unable to care for yourself. As soon as possible, establish a routine medication management treatment with a psychiatric provider, establish routine therapy appointments, and follow-up with a primary care provider. Patient met with this interviewer, Zaheer Bailey, and care specialist prior to discharge to discuss outpatient services and ongoing treatment options. Patient also requested this interviewer provide patient's number to Dr. Winston at [facility]. This interviewer contacted Dr. Winston today per patient' s request. Dr. Winston states she plans to follow-up with patient to discuss treatment options at [facility]. LEGAL COURSE: The patient was admitted on a court order 72-hour evaluation and discharged today voluntarily and independently. ATTITUDE AT TIME OF DISCHARGE: The patient's attitude was positive at time of discharge, and the patient reports looking forward to discharging today. The patient's affect at time of discharge was brighter, compared to when the patient was admitted. The patient smiled several times appropriately during meetings with this provider; his outpatient therapist, Zaheer Bailey; and the care specialist. The patient reports he feels safe to discharge, is no longer a danger to himself or others, is in stable condition, and contracts for safety. The patient states he will continue with outpatient treatment after discharge. The patient reports internal protective factors as coping skills he has learned while hospitalized here, and he plans to continue to practice these coping skills after discharge. The patient reports he also uses meditation as a coping skill and plans to continue this coping skill after discharge. The patient reports external protective factors as his mother and as hope for the future, and patient states when life is good, it is really good. Patient states he is motivated to get back to this point in his life. The patient describes looking forward to seeing his mother and being outside for a while after discharge. The patient describes future plans as to meet up with Zaheer Bailey, therapist, from [facility], and he is interested in finding out more about [facility]. The patient states that he is open to trying a medication at some point. The patient reports he has completed both Safety Plan and Wellness Plan and has reviewed these plans with treatment team staff. LABS AND STUDIES: There were no pending labs or studies at time of discharge. ADVANCED DIRECTIVES: There were no advanced directives on file, and patient was a full code during hospitalization. The following psychotropic medication treatment informed consent and recommendations were provided to the patient at time of discharge. Patient reports he understands, accepts, and agrees to the information that has been provided. Review safety plan and the importance to contact [facility] or [facility] , or go to the nearest emergency room, if ever a danger to yourself/others, or unable to care for yourself. Recommend upon discharge to establish routine medication management treatment with a psychiatric provider, establish routine therapy appointments, and follow-up with a primary care provider. Verify patient understands, accepts, and agrees to the information that has been provided. SUICIDE ASSESSMENT FIVE-STEP EVALUATION AND TRIAGE (1) RISK FACTORS: (a) Suicidal behavior: history of suicide attempt at age 18 overdose on Ativan; reports no other history of suicide attempts or self-injurious behavior (b) Current/past psychiatric disorders: major depressive disorder, severe (c) Marrero symptoms: moderate depression (d) Family history: no family history suicide or suicide attempts (e) Precipitants/Stressors/Interpersonal: none (f) Change in treatment: discharge from psychiatric hospital (g) Access to firearms: none (2) PROTECTIVE FACTORS: (a) Internal: coping skills and meditation (b) External: mother and future (3) SUICIDAL INQUIRY: (a) Ideation: none (b) Plan: none (c) Behaviors: none (d) Intent: none (4) RISK LEVEL: Low: modifiable risk factors, strong protective factors; no SI, plans, or intent. Intervention: treatment plan to reduce symptoms: therapy, provided emergency/crisis numbers, follow-up plan for outpatient services. /[id number]/[id number]
--- NOTE | 2018-05-27 08:43 | ASDISCHSUM ---
Discharge Information Plan Status:Outpatient Psych Referrals Medically Cleared to Leave: Discharge Date:05/26/2018 03:53 PM CM D/C Disposition:OP ADT D/C Disposition:Home, Routine, Self-Care Projected Discharge Date:05/26/2018 02:00 PM Transportation at D/C:Self Discharge Delay Reason: Follow-Up Date:05/26/2018 Discharge Slot: Final Diagnosis: Placement Information Referral Type:Outpatient Center/Clinic Referral ID:[id number] Provider Name: Address 1: Phone Number: Address 2: Fax Number: City: Selection Factors: State: Patient Contact Information Contact Name:LUPIS Relationship:Mother Address:[address] City:[place] Alternate Phone: [facility]/Zip Code:[place] [address] Email: Financial Information Financial Class:Tyler Day Primary Plan Desc:[facility] Primary Plan Number:[id number] Secondary Plan Desc: Secondary Plan Number: Assessment Information TLC Progress Note Notes Note: Notes: Called and spoke with Gene at [facility] who confirmed pt is not an open client. [facility] will conduct the evaluation when pt is med cleared. Date Signed: 05/23/2018 11:35 PM Electronically Signed By:Flaca Marcelino TLC Evaluation TLC Evaluation - Basic Information Evaluation Start Date and 05/24/2018 07:05 AM Time Hospital Status Answers: M1 Hold 72-hr M1 Hold Start Date 05/23/2018 11:14 PM and Time Patient statement Notes: I don't agree with what my mother reported on the court-ordered hold. I think it's just a game to force people to be hospitalize. I'm not relating to my mother. We don't see eye-to-eye. Regarding the hold report that I had barricaded myself in my house, it was just that I was trying to keep my mother from coming in. I have been feeling depressed for about a year. I'm unhappy and have severe discomfort in my body." Narrative Notes: Pt is a 27 yo, single, unemployed, male, with reported past history of anxiety, bipolar illness, possible autism spectrum/asperger's, brought to [facility] ED by HERMELINDA on a court-ordered hold petitioned by [facility] due to concerns about suicidal statements. Per petitioner's statement: pt has a history of mental health diagnosis for anxiety disorder and bipolar. He has had issue in the past but recently [[facility]'s} concern for his safety and wellbeing has intensified. Family also has a history of mental illness, autism and suicide and [facility] fears that pt has become suicidal. 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 He lives in [place] in a house for which [facility] pays the utilities and rent. Pt has completely isolated himself and recently had express despair about being alive. Pt sent a text to [facility] "You don't know the hell that I am in, you don't know how bad the state of my mind and body has gotten and how it reacts with people. It may be redeemable, in which case the best thing to do is to end my life. If you knew the torment I experience, unremittinlgy, and then you would know it doesn't just calm down when you're here, it often gets worse. If the knot is just too tight to untangle, then the best thing to do is cut the string. I have no relief. I don't experience any amount of ok. My body and mind are hell." [facility] added that pt had sent her a Youtube video where the speaker was talking about suicide and how people who commit suicide are not bad, but rather teachers. Pt has no social connections in [place]. His family and [facility] live out of state but try to keep in contact with him. [facility] will text him with no response. His twin brother will also try and reach out to him without any response. This past week, BOC and MOC flew out to [place] to check on pt. When they arrived to pt's home, it was barricaded. Once his brother got past the barricades and into the house, pt went out a window onto his roof and hid from family. They tried to talk to pt but received no answers. Pt would not come back into the house until they left. Pt also hides in crawl spaces or in the basement when his anxiety becomes too much for him. Although pt has sought out help in the past, he will never follow through. He refuses to take any medication or seek any professional help at this time. Pt has told MOC that if she tried to put him the health care system that he will run or . His anxiety level goes up to the point that he begins to hit himself in the heart or the back of his head. It looks as if he can no longer control the action of his body - he will jerk, groan, and yell. MO reported she fears for pt's life and that he had asked her recently "what if I do not want to live?" Pt is in a state of complete despair. he has attempted suicide in the past and MOC is concerned that if he does not get help he needs, he will attempt it again. As earlier noted, pt minimized his symptoms but did endorse feeling depressed for the past year. Pt reported having been hospitalized three previous times for 72 hours then released. He was treated at [facility] at age 18 and most recently in June 2017. Pt reported having attended a [facility]hab in [facility] where he spent two months for opiate dependency. Pt reported that he had worked with a therapist named Zaheer Bailey over the past 10 years, however, has not been working with him in two years. MOC reported that pt had attempted to become involved with the [facility], but would fail to attend/participate. Pt reported he is not on any home medications, has no known medication allergies. Sleep - pt reported typically getting 6-7 hours per night. Appetite was reported as normal. Diagnosis History Notes: Pt has reported history of anxiety, bipolar illness, and austims spectrum/possibe asperger's. Prior suicide attempts Notes: MOC reported on fabián's statement that pt had attempted suicide in the past. Prior hospitalizations Notes: Pt reported having been hospitalized three previous times for 72 hours then released. He was treated at [facility] at age 18 and most recently in June 2017. Pt reported [facility] [place] called [facility] where he spent two months for opiate dependency. Treatment Responses Notes: MOC reported pt having a history of not following up with professional care or taking prescribed medications. History of violence Notes: None reported. Therapist: None currently Psychiatrist: None Medications (name, dosage, route, freq uency) Notes: No home medications. Allergies/Reaction Notes: None reported. Sleep Notes: Pt reported typically getting 6-7 hours of sleep per night. Appetite Notes: WNL Medical/Surgical history Notes: None reported. Substance use history (frequency, intensity, his tory, duration) Notes: Pt reported having first tried alcohol at age 17. He reported he consumed more heavily around age 18. He reported that over the last year, he would drink about a dozen time total. He reported his last alcohol use, however, was last night, drank two shots of gin in a gin & Brant apple juice. He reported having first tried non-prescribed oxycontin at age 15. He reported going to two month [facility] rehab in [place] called [facility] at age 17. He reported his last use of any opiates was after [facility] at age 17. Pt reported he first tried marijuana at age 13. He reported he has not used any marijuana in the past 3-4 years. Pt denied any other illicit substance use history. BAL was zero. UDS was negative for all tested susbstances. Family composition Notes: Parent after 15 year marriage in 2003. Pt has a fraternal twin brother who lives in [place], [place]. He has a 27 yo sister who resides in [place]. Need for family Answers: Yes participation in patient's care Family psychiatric/substance abuse history Notes: MOC reported extensive family history, with MGFOC having history of bipolar and alcoholism; MGMOC with history of Autism; MAunt that committed suicide by overdose of pills and alcohol; MUncle with history of Asperger's; FOC with undiagnosed but suspected Asperger's. Developmental history Notes: Pt grew up in [place], [place]. He attended private schools. He denied any childhood history of TBI's, LOC, or concussions. Pt denied any childhood history of physcial, emotional or sexual abuse/trauma. Abuse concerns Answers: None Marital status/children Notes: Pt is single, never , no dependents. Not involved in dating relationship. Living situation Notes: Pt resides in a house in [place] by himself. [facility] pays utilities and rent for pt. Sexual history/orientation Notes: Not active. Heterosexual. Peer support/family strengths Notes: None identified by pt. MOC and siblings appear concerned and want to be supportive, however, pt alienates himself from family/others. Education level/history Notes: Pt attended private schools growing up. He later obtained his GED. 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 He has not been employed for a few years now. Notes: None. Legal Notes: Pt reported obtaining a DUI in 2008 and had to attend alcohol ed classes, community service. Uatsdin/Spiritual Notes: None reported by pt which would impact treatment. Leisure Notes: Pt reported he enjoyes being outdoors and hiking. Collateral Notes: Per [facility], Rhiannon Gleason [phone] as noted above. TLC Evaluation - Mental Status Exam Appearance: Answers: Appropriate Unkempt Eye Contact: Answers: Intermittent Staring Mood: Answers: Depressed Labile Sad Affect: Answers: Anxious Calm Constricted Guarded Inappropriate Incongruent w/ Mood Labile Sad Silly Suspicious Behavior: Answers: Cooperative Guarded Passive Resistive to Care Speech: Answers: Relevant Logical Clear Coherent Loose Associations Thought Process: Answers: Disorganized Oriented Alert Circumstantial Loose Associations Tangential Insight: Answers: Poor Judgement: Answers: Poor Manic Signs/Symptoms Answers: Impulsivity Mood Swings Depression Answers: Difficulty Concentrating Signs/Symptoms: Diminished Pleasure Flat Affect Psychomotor Retardation Sad Mood Withdrawn Anxiety Signs/Symptoms Answers: Generalized Anxiety Hallucinations: Answers: None Delusions: Answers: Paranoid Ideation Current Stage of Change Answers: Maintenance Pt reported to have Answers: Yes suicidal/self-injuring ideation/behavior? Pt reported to be making Answers: No suicidal/self-injuring threats? Pt reported to have Answers: No aggression/assault ideation/behavior? Pt reported to be making Answers: No aggression/assault threats? Pt exhibits inability to Answers: Yes care for self/grave disability? Ideation/behavior is Answers: Yes chronic? Patient has a specific Answers: No plan? Ideation involves Answers: No serious/lethal intent? Ideation has Answers: No delusional/hallucinatory content? History of Answers: Yes suicidal/self-injuring ideation, behavior, or threats? History of Answers: No aggressive/assaultive ideation, behavior, or threats? History of serious Answers: No physical harm to self/others while in treatment setting? TLC Evaluation - Suicide/Homicide Risk Suicide Risk Factors: Answers: Anhedonia Anxiety/Panic, Severe Bipolar Disorder Flat Affect Hx of Suicide Attempt by Family Member Impulsivity Inadequate Social Support Lack of Uatsdin Support Lack of Social Support Lack/Loss of Employment Prior Suicide Attempt(s) Single Homicide/violence risk Answers: None factors: Current Suicidal Answers: No Ideation? Current Suicidal Ideation Answers: Yes in the Past 48 Hours? Current Suicidal Ideation Answers: Yes in the Past Month? Current Suicidal Answers: No Ideation, Worst Ever? Suicide Internal Answers: Absence of Psychosis Protective Factors: Suicide External Answers: None Protective Factors: Ranking of patient's Answers: Severe suicidal risk: Ranking of patient's Answers: Low homicidal risk: TLC Evaluation - Wrap-up BDI Total Score: 9 BDI Question #2 Score: 0 BDI Question #9 Score: 0 BSS Total Score: 0 AXIS I Diagnosis (include DSM-V and ICD-10 codes), must also be entered in [employer], which is the source of truth. Notes: PROVISIONAL DIAGNOSTIC IMPRESSION: BIPOLAR I DISORDER, CURRENT OR MOST RECENT EPISODE DEPRESSED, SEVERE 296.53 (F31.4) GENERALIZED ANXIETY DISORDER 300.02 (F41.1) R/O AUTISM SPECTRUM DISORDER/ASPERGER'S 299.00(F84.0) IN CONSULTATION WITH [facility] ED PHYSICIAN, DIANA HARP MD AND ON-CALL PSYCHIATRIST, ROD ALVARADO MD, BOTH CONCURRED THAT PT APPEARS TO MEET 27-65 CRITERIA REQUIRING PSYCHIATRIC HOSPITALIZATION PT APPEARS TO BE AN IMMINENT RISK OF HARM TO SELF DUE TO A MENTAL ILLNESS CONDITION. PT WAS GIVEN (BUT DECLINED TO SIGN) THE 3N PROHIBITED BELONGINGS LIST WHILE IN THE ED. Evaluation End Date and 05/24/2018 10:40 AM Time (HH:MM): Date Signed: 05/24/2018 10:42 AM Electronically Signed By:Cameron Spinler TLC Discharge Disposition TLC Discharge Disposition Disposition: Answers: Admit Disposition Notes: Notes: ADMIT TO [facility]. Discharge Concerns/Recommendations: Notes: IN CONSULTATION WITH [facility] ED PHYSICIAN, DIANA HARP MD AND ON-CALL PSYCHIATRIST, ROD ALVARADO MD, BOTH CONCURRED THAT PT APPEARS TO MEET 27-65 CRITERIA REQUIRING PSYCHIATRIC HOSPITALIZATION PT APPEARS TO BE AN IMMINENT RISK OF HARM TO SELF DUE TO A MENTAL ILLNESS CONDITION. PT WAS GIVEN (BUT DECLINED TO SIGN) THE 3N PROHIBITED BELONGINGS LIST WHILE IN THE ED. Was patient given the Answers: Yes Inpatient [facility] Prohibited Belongings List while in the ED? For inpatient Rod Alvarado MD admission, the following psychiatrist agreed to accept patient for admission to [facility] ([facility]): Psychiatrist vacating M1 N/A Hold: Type of Hold: Answers: M1/72-hour Hold Hold initiated by: Answers: Court Order For Transfers, Accepting [facility] Facility: Date Signed: 05/24/2018 10:45 AM Electronically Signed By:Cameron [facility] Master Treatment Plan Master Treatment Plan Master Treatment Plan Answers: Depressed Mood without for: Suicidal Ideation Date: 05/25/2018 Diagnosis on Admission: BiPolar I Disorder, Current or Most Recent Episode Depressed, Severe & Generalized Anxiety Disorder Expected length of stay: 3-5 days Reason for admission: Notes: Pt is a 27 yoa male with reported history of anxiety, bipolar illness, possible autism spectrum/asperger's, brought to ED by [facility] on a court-order Hold Petition by [facility] due to concerns about suicidal statements Client has had at least three prior hospitalizations. Pt reported having attended a [facility]hab in [place] ([facility]) where he spent two months for Opiate Dependency. Pt reported that he was worked with a therapist named Zaheer Bailey over the past 10 years; however, has not been working with him in two years. Patient's stated presenting problems: Notes: "Because, I have a court order to be here, due to my Mother's concern for my mental health." Patient's goals for treatment: Notes: "[I] am looking to be 'here' present and live my life and hopefully discharging soon." Patient's strengths: Notes: "I am a kind person." Identify supports outside of hospital: Notes: Therapist: Zaheer Bailey Discharge criteria: Notes: Suicidal Ideation will resolve and patient will have a plan to safely manage recurrent suicidal ideations." Initial disposition plan/considerations: Notes: "go home and then go camping." Master Treatment Plan Required Signatures Psychiatrist signature: Answers: YARON Reagan: RN on-shift signature: Answers: RN: Patient signature: Answers: Patient: Date Signed: 05/25/2018 11:01 AM Electronically Signed By:Fito [facility] Discharge Planning Note Notes Note: Notes: Per provider, client will be discharging when hold is up on 05/26 at 14:55. CC sent referral packet to [facility]; waiting to hear back. Also, included additional resources listed below. CC completed MTP and ALBINO with client. Client is semi-clean, direct, good eye contact, depressed with current situation, eager to find out-patient providers, affect is sadden; however, appropriate to situation. Date Signed: 05/25/2018 12:02 PM Electronically Signed By:Fito [facility] Discharge Planning Note Notes Note: Notes: CC was able to confirm client's follow up appointments prior to discharge today. Please view below: Follow up with: [facility] [address], [address]nd [place] [address] [phone] Intake Appt: WednesdayJune 06 (06/06/18) at 9AM, with Noah Desai Additional Resources: [facility] [address] [place] [address] [facility] [address] [place] [id number] Walk-in HOURS OF OPERATION Week Day Clinic OpensClosed for LunchClmahnomen health centera Closes Wednesday [id number] [id number] Date Signed: 05/26/2018 12:49 PM Electronically Signed By:Fito Martinez Intervention Information
== END 2018-05-26 15:53 | disposition home or self-care (01) | DRG 885 ==
LOC: BBEH 05-24 10:00
PROVIDERS: ADMIT Psychiatry & Neurology Psychiatry; ATTEND Psychiatry & Neurology Psychiatry
DX: F32.2 Major depressive disorder, single episode, severe without psychotic features (principal); R00.1 Bradycardia, unspecified; F31.9 Bipolar disorder, unspecified
CPT/HCPCS: 80305; G0480